=== PATIENT | female | born 1955 | race Caucasian/White ===

== ENCOUNTER 2017-11-22 21:30 | Observation (INO) | payer OTHER ==
[2017-11-22] MEDS ORDERED: RX INFO: IV CONTRAST WAS GIVEN 1 EACH MISC MISCELLANE PRN (21:42)
[2017-11-22] MEDS ORDERED: SODIUM CHLORIDE 0.9% 1,000 ML IV STA ×2 (21:42)
--- NOTE | 2017-11-22 21:45 | ED ---
General Adult HPI - General Chief complaint: Abdominal Pain Stated complaint: Upper Gastric Pain Time Seen by Provider: 11/22/17 21:32 Source: patient, EMS, RN notes reviewed, old records reviewed Mode of arrival: EMS Limitations: no limitations - History of Present Illness Initial comments: This is a 62-year-old female to the ER for evaluation. Patient was essay for evaluation regards to chest pain. Chest pain that began this morning while wearing came back again tonight. Chest pain is in her chest radiating to her back, continuous and severe. Patient has no prior history of this pain or issues before, no significant medical history. Takes no medications. - Related Data Home Medications Medication Instructions Recorded Confirmed Ascorbic Acid [Vitamin C] 500 mg PO DAILY 11/22/17 11/22/17 Aspirin EC [Ecotrin Low Dose] 81 mg PO DAILY 11/22/17 11/22/17 Cholecalciferol [Vitamin D3] 1,000 unit PO DAILY 11/22/17 11/22/17 Multivitamin [Multivitamins Adult 2 tab PO DAILY 11/22/17 11/22/17 Gummies] Allergies Allergy/AdvReac Type Severity Reaction Status Date / Time No Known Allergies Allergy Verified 11/22/17 21:54 Review of Systems ROS Statement: Those systems with pertinent positive or pertinent negative responses have been documented in the HPI. ROS Other: All systems not noted in ROS Statement are negative. Past Medical History Past Medical History: No Reported History History of Any Multi-Drug Resistant Organisms: None Reported Past Surgical History: Section, Tubal Ligation Past Psychological History: Depression General Exam Limitations: no limitations General appearance: alert, in no apparent distress, anxious Head exam: Present: atraumatic, normocephalic, normal inspection Eye exam: Present: normal appearance, PERRL, EOMI. Absent: scleral icterus, conjunctival injection, periorbital swelling ENT exam: Present: normal exam, mucous membranes moist Neck exam: Present: normal inspection. Absent: tenderness, meningismus, lymphadenopathy Respiratory exam: Present: normal lung sounds bilaterally. Absent: respiratory distress, wheezes, rales, rhonchi, stridor Cardiovascular Exam: Present: regular rate, normal rhythm, normal heart sounds. Absent: systolic murmur, diastolic murmur, rubs, gallop, clicks GI/Abdominal exam: Present: soft, normal bowel sounds. Absent: distended, tenderness, guarding, rebound, rigid Extremities exam: Present: normal inspection, full ROM, normal capillary refill. Absent: tenderness, pedal edema, joint swelling, calf tenderness Back exam: Present: normal inspection Neurological exam: Present: alert, oriented X3, CN II-XII intact Psychiatric exam: Present: normal affect, normal mood Skin exam: Present: warm, dry, intact, normal color. Absent: rash Course Vital Signs 11/22/17 11/22/17 21:36 23:42 Temperature 98.2 F Pulse Rate 74 70 Respiratory 18 16 Rate Blood Pressure 198/93 O2 Sat by Pulse 95 99 Oximetry Medical Decision Making - Medical Decision Making 62 female the ER for evaluation of bowel pain down pain rating to her back. Happened earlier today after breakfast, again tonight and more persistent. Patient is a positive cholecystitis. To be admitted for surgical treatment - Lab Data Result diagrams: 11/22/17 21:32 11/22/17 21:32 Lab Results 11/22/17 11/22/17 11/22/17 Range/Units 21:32 21:32 21:32 WBC 6.6 (3.8-10.6) k/uL RBC 4.63 (3.80-5.40) m/uL Hgb 13.5 (11.4-16.0) gm/dL Hct 42.0 (34.0-46.0) % MCV 90.7 (80.0-100.0) fL MCH 29.1 (25.0-35.0) pg MCHC 32.1 (31.0-37.0) g/dL RDW 14.3 (11.5-15.5) % Plt Count 302 (150-450) k/uL Neutrophils % 62 % Lymphocytes % 22 % Monocytes % 5 % Eosinophils % 9 % Basophils % 1 % Neutrophils # 4.1 (1.3-7.7) k/uL Lymphocytes # 1.4 (1.0-4.8) k/uL Monocytes # 0.3 (0-1.0) k/uL Eosinophils # 0.6 (0-0.7) k/uL Basophils # 0.1 (0-0.2) k/uL PT (9.0-12.0) sec INR (<1.2) APTT (22.0-30.0) sec D-Dimer (<0.60) mg/L FEU Sodium 142 (137-145) mmol/L Potassium 4.2 (3.5-5.1) mmol/L Chloride 103 (98-107) mmol/L Carbon Dioxide 27 (22-30) mmol/L Anion Gap 12 mmol/L BUN 9 (7-17) mg/dL Creatinine 0.50 L (0.52-1.04) mg/dL Est GFR (CKD-EPI)AfAm >90 (>60 ml/min/1.73 sqM) Est GFR (CKD-EPI)NonAf >90 (>60 ml/min/1.73 sqM) Glucose 144 H (74-99) mg/dL Calcium 9.8 (8.4-10.2) mg/dL Magnesium 1.8 (1.6-2.3) mg/dL Total Bilirubin 1.4 H (0.2-1.3) mg/dL AST 1062 H (14-36) U/L ALT 923 H (9-52) U/L Alkaline Phosphatase 199 H (38-126) U/L Total Creatine Kinase 58 (30-135) U/L CK-MB (CK-2) 0.8 (0.0-2.4) ng/mL CK-MB (CK-2) Rel Index 1.4 Troponin I <0.012 (0.000-0.034) ng/mL Total Protein 7.1 (6.3-8.2) g/dL Albumin 4.2 (3.5-5.0) g/dL Lipase 197 (23-300) U/L 11/22/17 Range/Units 21:32 WBC (3.8-10.6) k/uL RBC (3.80-5.40) m/uL Hgb (11.4-16.0) gm/dL Hct (34.0-46.0) % MCV (80.0-100.0) fL MCH (25.0-35.0) pg MCHC (31.0-37.0) g/dL RDW (11.5-15.5) % Plt Count (150-450) k/uL Neutrophils % % Lymphocytes % % Monocytes % % Eosinophils % % Basophils % % Neutrophils # (1.3-7.7) k/uL Lymphocytes # (1.0-4.8) k/uL Monocytes # (0-1.0) k/uL Eosinophils # (0-0.7) k/uL Basophils # (0-0.2) k/uL PT 9.6 (9.0-12.0) sec INR 1.0 (<1.2) APTT 22.4 (22.0-30.0) sec D-Dimer 1.70 H (<0.60) mg/L FEU Sodium (137-145) mmol/L Potassium (3.5-5.1) mmol/L Chloride (98-107) mmol/L Carbon Dioxide (22-30) mmol/L Anion Gap mmol/L BUN (7-17) mg/dL Creatinine (0.52-1.04) mg/dL Est GFR (CKD-EPI)AfAm (>60 ml/min/1.73 sqM) Est GFR (CKD-EPI)NonAf (>60 ml/min/1.73 sqM) Glucose (74-99) mg/dL Calcium (8.4-10.2) mg/dL Magnesium (1.6-2.3) mg/dL Total Bilirubin (0.2-1.3) mg/dL AST (14-36) U/L ALT (9-52) U/L Alkaline Phosphatase (38-126) U/L Total Creatine Kinase (30-135) U/L CK-MB (CK-2) (0.0-2.4) ng/mL CK-MB (CK-2) Rel Index Troponin I (0.000-0.034) ng/mL Total Protein (6.3-8.2) g/dL Albumin (3.5-5.0) g/dL Lipase (23-300) U/L - Radiology Data Radiology results: report reviewed (CTA chest is negative, ultrasound is positive for acute cholecystitis), image reviewed Disposition Clinical Impression: Acute cholecystitis Disposition: ADMITTED IP TO THIS [facility] Condition: Fair Referrals: None,Stated [Primary Care Provider] - 1-2 days
[2017-11-22 22:01] LABS: Basophils # (A) 0.1 k/uL (0-0.2); Basophils % (A) 1 %; Eosinophils # (A) 0.6 k/uL (0-0.7); Eosinophils % (A) 9 %; HGB 13.5 gm/dL (11.4-16.0); Lymphocytes # (A) 1.4 k/uL (1.0-4.8); Lymphocytes % (A) 22 %; MCH 29.1 pg (25.0-35.0); MCHC 32.1 g/dL (31.0-37.0); MCV 90.7 fL (80.0-100.0); Mean Platelet Volume 6.8; Monocytes # (A) 0.3 k/uL (0-1.0); Monocytes % (A) 5 %; Neutrophils # (A) 4.1 k/uL (1.3-7.7); Neutrophils % (A) 62 %; Platelet Count 302 k/uL (150-450); RBC 4.63 m/uL (3.80-5.40); RDW 14.3 % (11.5-15.5); WBC 6.6 k/uL (3.8-10.6)
[2017-11-22 22:11] LABS: D-Dimer 1.7 mg/L FEU (<0.60)
[2017-11-22 22:12] LABS: ALT 923 U/L (9-52); Albumin 4.2 g/dL (3.5-5.0); Alkaline Phosphatase 199 U/L (38-126); Anion Gap 12 mmol/L; Blood Urea Nitrogen 9 mg/dL (7-17); Calcium 9.8 mg/dL (8.4-10.2); Carbon Dioxide 27 mmol/L (22-30); Chloride 103 mmol/L (98-107); Glucose 144 mg/dL (74-99); Lipase 197 U/L (23-300); Magnesium 1.8 mg/dL (1.6-2.3); Potassium 4.2 mmol/L (3.5-5.1); Sodium 142 mmol/L (137-145); Total Bilirubin 1.4 mg/dL (0.2-1.3); Total Protein 7.1 g/dL (6.3-8.2)
[2017-11-22 22:17] LABS: Partial Thromboplastin Time 22.4 sec (22.0-30.0); Prothrombin Time 9.6 sec (9.0-12.0)
--- NOTE | 2017-11-22 22:18 | CT ---
EXAMINATION TYPE: CT angio thoracic/abd aorta DATE OF EXAM: 11/22/2017 COMPARISON: NONE HISTORY: Epigastric pain that wraps around to back. Hypertension. CT DLP: 476.8 mGycm. Automated Exposure Control for Dose Reduction was Utilized. CONTRAST: CT scan of the thorax, abdomen and pelvis is performed with IV Contrast, patient injected with 100 mL of Omnipaque 350. FINDINGS: There are 3-D post processed images. Thoracic aorta has normal size. There is no evidence of aneurysm or dissection. I see no filling defects in the pulmonary arteries. There is no mediastinal adenopath y. There are no hilar masses. Abdominal aorta has normal size. There is no evidence of abdominal aort ic aneurysm or dissection. There is mild atheromatous change. There is no evidence of stenosis. There is patency of the celiac artery and the superior mesenteric artery. There is patency of the eusebio al arteries. There is wide patency of the iliac arteries. There are clips from tubal ligation. Bladde r distends smoothly. There is no evidence of a pelvic mass. Appendix appears normal. There is no retr operitoneal adenopathy. There are numerous calcified gallstones. There is no hydronephrosis. CONCLUSION: Minimal atheromatous change. No evidence of aortic aneurysm or dissection. No evidence of hemodynamic ally significant stenosis. There is a degenerative mild first-degree L4-5 spondylolisthesis. Calcified gallstones. Minimal pleural scarring at the right upper lobe posteriorly.
[2017-11-22 22:23] LABS: Creatine Kinase 58 U/L (30-135)
[2017-11-22 22:27] LABS: AST 1062 U/L (14-36)
[2017-11-22 22:36] LABS: Creatine Kinase MB 0.8 ng/mL (0.0-2.4); Troponin I <0.012 ng/mL (0.000-0.034)
--- NOTE | 2017-11-22 23:46 | US ---
EXAMINATION TYPE: US gallbladder DATE OF EXAM: 11/22/2017 COMPARISON: CT 2018 CLINICAL HISTORY: Pain. Abdomen pain, heartburn EXAM MEASUREMENTS: Liver Length: 15.0 cm Gallbladder Wall: 0.2 cm CBD: 0.4 cm Right Kidney: 9.5 x 4.3 x 4.7 cm Pancreas: duct seen measuring 0.3cm, tail obscured by overlying midline bowel gas Liver: wnl Gallbladder: multiple mobile echogenic shadowing foci, wall measures wnl Evidence for sonographic Vázquez's sign: yes CBD: visualized portions wnl Right Kidney: wnl IMPRESSION: Numerous gallstones. No dilated ducts.
[2017-11-22] MEDS ORDERED: AMPICILLIN-SULBACTAM 3 GM in SODIUM CHLORIDE 0.9% 100 ML IVPB STA (23:48)
[2017-11-23] MEDS ORDERED: AMPICILLIN-SULBACTAM 3 GM in SODIUM CHLORIDE 0.9% 100 ML IVPB SCH ×2
[2017-11-23] MEDS: AMPICILLIN-SULBACTAM 3 GM in SODIUM CHLORIDE 0.9% 100 ML IVPB SCH ×3 (05:14→17:04)
[2017-11-23] MEDS: ENOXAPARIN 40 MG/0.4 ML SYRINGE SQ SCH (09:15)
--- NOTE | 2017-11-23 13:13 | P.GSHP ---
History of Present Illness H&P Date: 11/23/17 Chief Complaint: Lower chest pain The patient's a 62-year-old female that developed some chest pain and pressure in her lower chest/epigastric area yesterday. This started after eating some cheese and crackers for breakfast. This went away and then later in the day returned after some chips and salsa. She went to bed and then a googled her symptoms and talked to her nurse who recommended evaluation to rule out atypical heart disease. She was found to have elevated liver function tests and gallstones. She's never previously had any problems with pain similar to this. No discomfort, nausea, vomiting with greasy or fatty foods. No jaundice , tea-colored urine, acholic stools. No fevers or chills. No diarrhea or constipation. Many of her family members have had cholecystectomy. She feels great this morning and wants to go home. - Review of Systems All systems: negative - Constitutional Constitutional: Reports as per HPI Past Medical History Past Medical History: No Reported History History of Any Multi-Drug Resistant Organisms: None Reported Past Surgical History: Section, Tubal Ligation Past Anesthesia/Blood Transfusion Reactions: No Reported Reaction Past Psychological History: Depression Smoking Status: Light tobacco smoker Past Alcohol Use History: None Reported Past Drug Use History: None Reported Medications and Allergies Home Medications Medication Instructions Recorded Confirmed Type Ascorbic Acid [Vitamin C] 500 mg PO DAILY 11/22/17 11/22/17 History Aspirin EC [Ecotrin Low Dose] 81 mg PO DAILY 11/22/17 11/22/17 History Cholecalciferol [Vitamin D3] 1,000 unit PO DAILY 11/22/17 11/22/17 History Multivitamin [Multivitamins Adult 2 tab PO DAILY 11/22/17 11/22/17 History Gummies] Allergies Allergy/AdvReac Type Severity Reaction Status Date / Time No Known Allergies Allergy Verified 11/22/17 21:54 Surgical - Exam Osteopathic Statement: *. No significant issues noted on an osteopathic structural exam other than those noted in the History and Physical/Consult. Vital Signs Temp Pulse Resp BP Pulse Ox 98.2 F 74 18 198/93 95 11/22/17 21:36 11/22/17 21:36 11/22/17 21:36 11/22/17 21:36 11/22/17 21:36 - General well developed, well nourished, no distress - Eyes normal ocular movement - ENT normal nares, normal mucosa, no hearing loss - Neck trachea midline - Respiratory normal expansion, normal respiratory effort, clear to auscultation - Cardiovascular Rhythm: regular Abnormal Heart Sounds: no systolic murmur - Abdomen Abdomen: soft, no non tender, bowel sounds, surgical scars (Lower midline) Hernia: no umbilical - Psychiatric oriented to time, oriented to person, oriented to place, speech is normal, memory intact Results - Labs 11/22/17 21:32 11/22/17 21:32 Abnormal Lab Results - Last 24 Hours (Table) 11/22/17 11/22/17 Range/Units 21:32 21:32 D-Dimer 1.70 H (<0.60) mg/L FEU Creatinine 0.50 L (0.52-1.04) mg/dL Glucose 144 H (74-99) mg/dL Total Bilirubin 1.4 H (0.2-1.3) mg/dL AST 1062 H (14-36) U/L ALT 923 H (9-52) U/L Alkaline Phosphatase 199 H (38-126) U/L Diabetes panel 11/22/17 Range/Units 21:32 Sodium 142 (137-145) mmol/L Potassium 4.2 (3.5-5.1) mmol/L Chloride 103 (98-107) mmol/L Carbon Dioxide 27 (22-30) mmol/L BUN 9 (7-17) mg/dL Creatinine 0.50 L (0.52-1.04) mg/dL Glucose 144 H (74-99) mg/dL Calcium 9.8 (8.4-10.2) mg/dL AST 1062 H (14-36) U/L ALT 923 H (9-52) U/L Alkaline Phosphatase 199 H (38-126) U/L Total Protein 7.1 (6.3-8.2) g/dL Albumin 4.2 (3.5-5.0) g/dL Calcium panel 11/22/17 Range/Units 21:32 Calcium 9.8 (8.4-10.2) mg/dL Albumin 4.2 (3.5-5.0) g/dL Pituitary panel 11/22/17 Range/Units 21:32 Sodium 142 (137-145) mmol/L Potassium 4.2 (3.5-5.1) mmol/L Chloride 103 (98-107) mmol/L Carbon Dioxide 27 (22-30) mmol/L BUN 9 (7-17) mg/dL Creatinine 0.50 L (0.52-1.04) mg/dL Glucose 144 H (74-99) mg/dL Calcium 9.8 (8.4-10.2) mg/dL Adrenal panel 11/22/17 Range/Units 21:32 Sodium 142 (137-145) mmol/L Potassium 4.2 (3.5-5.1) mmol/L Chloride 103 (98-107) mmol/L Carbon Dioxide 27 (22-30) mmol/L BUN 9 (7-17) mg/dL Creatinine 0.50 L (0.52-1.04) mg/dL Glucose 144 H (74-99) mg/dL Calcium 9.8 (8.4-10.2) mg/dL Total Bilirubin 1.4 H (0.2-1.3) mg/dL AST 1062 H (14-36) U/L ALT 923 H (9-52) U/L Alkaline Phosphatase 199 H (38-126) U/L Total Protein 7.1 (6.3-8.2) g/dL Albumin 4.2 (3.5-5.0) g/dL - Imaging US - abdomen: report reviewed Assessment and Plan (1) Cholelithiasis Current Visit: Yes Status: Acute Code(s): K80.20 - CALCULUS OF GALLBLADDER W /O CHOLECYSTITIS W/O OBSTRUCTION SNOMED Code(s): 835376796 (2) Elevated liver function tests Current Visit: Yes Status: Acute Code(s): R79.89 - OTHER SPECIFIED ABNORMAL FINDINGS OF BLOOD CHEMISTRY SNOMED Code(s): 436737371 Plan: The patient is anxious to go home. I recommended we obtain a acute hepatitis panel, since the common bile duct was nondilated. We'll give her a trial of a diet. Repeat liver function tests in the morning. If she symptomatic again with eating do a laparoscopic cholecystectomy while she is here. Further recommendations to follow. DVT and ulcer prophylaxis.
[2017-11-24] MEDS: AMPICILLIN-SULBACTAM 3 GM in SODIUM CHLORIDE 0.9% 100 ML IVPB SCH ×3 (00:27→11:15)
[2017-11-24] MEDS: ENOXAPARIN 40 MG/0.4 ML SYRINGE SQ SCH (07:07)
[2017-11-24 07:55] VITALS: BP 145/76; PULSE 68; RESP 18; TEMP 97
[2017-11-24 08:04] LABS: ALT 520 U/L (9-52); AST 186 U/L (14-36); Albumin 4.1 g/dL (3.5-5.0); Alkaline Phosphatase 179 U/L (38-126); Anion Gap 11 mmol/L; Blood Urea Nitrogen 8 mg/dL (7-17); Calcium 9.6 mg/dL (8.4-10.2); Carbon Dioxide 27 mmol/L (22-30); Chloride 104 mmol/L (98-107); Glucose 114 mg/dL (74-99); Potassium 4.1 mmol/L (3.5-5.1); Sodium 142 mmol/L (137-145); Total Bilirubin 0.7 mg/dL (0.2-1.3); Total Protein 6.9 g/dL (6.3-8.2)
[2017-11-24 10:49] LABS: Hepatitis A Antibody IgM Non-Reactive (Non-Reactive); Hepatitis B Core IgM Non-Reactive (Non-Reactive)
--- NOTE | 2017-11-24 12:15 | P.PN ---
Subjective Progress Note Date: 11/24/17 Principal diagnosis: Cholelithiasis, elevated liver function tests The patient has had no further chest pain or pressure since admission. She tolerated a diet yesterday with no complaints. She is anxious to go home. Objective - Vital Signs Vital signs: Vital Signs Temp 97.0 F L 11/24/17 07:00 Pulse 68 11/24/17 07:00 Resp 18 11/24/17 07:00 BP 145/76 11/24/17 07:00 Pulse Ox 95 11/24/17 07:00 Intake & Output 11/23/17 11/24/17 11/24/17 18:59 06:59 18:59 Intake Total 1775 997 3138 Balance 9337 243 9788 Weight 75.296 kg 75.296 kg Intake: IV 400 Sodium Chloride 0.9% 1, 400 000 ml @ 100 mls/hr IV . Q10H STA Rx#:[id number] Intake, IV Titration 1000 200 100 Amount Ampicillin-Sulbactam 3 gm 200 200 100 In Sodium Chloride 0.9% 100 ml @ 100 mls/hr IVPB Q6HR VIKTOR Rx#:[id number] Sodium Chloride 0.9% 1, 800 000 ml @ 100 mls/hr IV . Q10H STA Rx#:[id number] Oral 360 1000 Other: Voiding Method Toilet Toilet Toilet # Voids 3 3 # Bowel Movements 1 - Constitutional General appearance: Present: cooperative, no acute distress - EENT Eyes: Present: anicteric sclerae - Respiratory Respiratory: bilateral: CTA - Gastrointestinal General gastrointestinal: Present: soft. Absent: distended, tenderness - Labs CBC & Chem 7: 11/22/17 21:32 11/24/17 07:19 Labs: Abnormal Lab Results - Last 24 Hours (Table) 11/24/17 Range/Units 07:19 Glucose 114 H (74-99) mg/dL AST 186 H (14-36) U/L ALT 520 H (9-52) U/L Alkaline Phosphatase 179 H (38-126) U/L Assessment and Plan (1) Cholelithiasis Current Visit: Yes Status: Acute Code(s): K80.20 - CALCULUS OF GALLBLADDER W /O CHOLECYSTITIS W/O OBSTRUCTION SNOMED Code(s): 135720745 (2) Elevated liver function tests Current Visit: Yes Status: Acute Code(s): R79.89 - OTHER SPECIFIED ABNORMAL FINDINGS OF BLOOD CHEMISTRY SNOMED Code(s): 956393543 Plan: The patient has felt well since admission. Her liver function tests are coming down. Likely she passed a small gallstone in the gallstone without difficulty. We'll discharge her home on a low-fat diet and schedule her as an outpatient for a laparoscopic cholecystectomy. The procedure risk and complications were discussed. Questions were encouraged and answered. We went over symptoms to look for as far as her recurrent symptomatic gallstone.
--- NOTE | 2017-11-24 12:17 | P.DS ---
Providers Date of admission: 11/23/17 00:02 Expected date of discharge: 11/24/17 Attending physician: Yani Torres Primary care physician: Stated None - Discharge Diagnosis(es) (1) Cholelithiasis Current Visit: Yes Status: Acute (2) Elevated liver function tests Current Visit: Yes Status: Acute Hospital Course: The patient presented with chest and epigastric discomfort and nausea. She was found to have gallstones with a normal common bile duct on ultrasound. Her liver function tests were elevated. She was asymptomatic after admission. Follow-up liver function tests dropped quickly. She was felt to be stable for discharge with outpatient cholecystectomy to be scheduled. Patient Condition at Discharge: Good Plan - Discharge Summary Discharge Rx Participant: No New Discharge Prescriptions: No Action Aspirin EC [Ecotrin Low Dose] 81 mg PO DAILY Ascorbic Acid [Vitamin C] 500 mg PO DAILY Multivitamin [Multivitamins Adult Gummies] 2 tab PO DAILY Cholecalciferol [Vitamin D3] 1,000 unit PO DAILY Discharge Medication List Ascorbic Acid [Vitamin C] 500 mg PO DAILY 11/22/17 [History] Aspirin EC [Ecotrin Low Dose] 81 mg PO DAILY 11/22/17 [History] Cholecalciferol [Vitamin D3] 1,000 unit PO DAILY 11/22/17 [History] Multivitamin [Multivitamins Adult Gummies] 2 tab PO DAILY 11/22/17 [History] Follow up Appointment(s)/Referral(s): Yani Torres DO [Doctor of Osteopathic Medicine] - 1 Week None,Stated [Primary Care Provider] - 1-2 days Activity/Diet/Wound Care/Special Instructions: Low-fat, bland diet. If you develop jaundice, fever, chills, nausea, vomiting, recurrent chest pressure or pain, call the office or return to the emergency department. We will call to schedule a laparoscopic cholecystectomy for use as outpatient. Discharge Disposition: HOME SELF-CARE
== END 2017-11-24 13:25 | disposition home or self-care (01) ==
LOC: EC 21:30 → 5MS5E 11-23 00:02 → INTOOBSV 11-23 00:02
PROVIDERS: ADMIT Surgery; ATTEND Surgery
DX: K80.00 Calculus of gallbladder with acute cholecystitis without obstruction (principal); F32.9 Major depressive disorder, single episode, unspecified; R79.89 Other specified abnormal findings of blood chemistry; F17.200 Nicotine dependence, unspecified, uncomplicated; Z79.82 Long term (current) use of aspirin; Z83.79 Family history of other diseases of the digestive system
CPT/HCPCS: 99285; 96361 ×3; 96365; 36415; 85379; 80053 ×2; 80074; 82550; 82553; 83690; 83735; 84484; 85025; 85610; 85730; 76705; 75635; 71275; G0378 ×2; Q9967; J0295 ×2; 96366

== ENCOUNTER 2017-12-20 07:48 | Day surgery (SDC) | payer OTHER ==
[2017-12-16 15:44] VITALS: BMI 29.2
[~2017-12-20 07:48] MED LIST: DEXAMETHASONE SOD PHOSPHATE 10 MG/ML 1 ML VIAL IV ONE; LACTATED RINGERS 1,000 ML IV SCH; MIDAZOLAM 2 MG/2 ML VIAL IV PRN; MORPHINE SULFATE 4 MG/ML SYRINGE IV PRN; ONDANSETRON 4 MG/2 ML VIAL IVP ONE; ceFAZolin IN SWFI 2 GM/20 ML SYRINGE IVP ONE
[2017-12-20] MEDS ORDERED: LIDOCAINE 1% 20 ML VIAL (10MG/ML) FOR IV START INTRADERMA ONE (08:18)
[2017-12-20] MEDS ORDERED: PROPOFOL 10 MG/ML 20 ML VIAL IV ONE (08:54)
[2017-12-20] MEDS ORDERED: GLYCOPYRROLATE 0.2 MG/ML 2 ML VIAL ONE (08:54)
[2017-12-20] MEDS ORDERED: NEOSTIGMINE 1 MG/ML 10 ML VIAL ONE (08:54)
[2017-12-20] MEDS ORDERED: fentaNYL (PF) 50 MCG/ML 2 ML AMP ONE (08:54)
[2017-12-20] MEDS ORDERED: ROCURONIUM BROMIDE 10 MG/ML 10 ML VIAL IV ONE (08:54)
[2017-12-20] MEDS ORDERED: SUCCINYLCHOLINE CHLORIDE 100 MG/5 ML SYR IV ONE (08:54)
[2017-12-20] MEDS ORDERED: LIDOCAINE 1% INJ 10MG/ML (20 ML MDV) ONE (08:54)
[2017-12-20] MEDS ORDERED: PHENYLEPHRINE-0.9% NACL SYG 1 MG/10 ML SYRINGE ONE (08:54)
[2017-12-20] MEDS ORDERED: ePHEDrine SULFATE/0.9% NACL/PF 50 MG/5 ML SYRINGE IV ONE (08:54)
[2017-12-20] MEDS ORDERED: BUPIVACAINE (PF) 0.5% 30 ML VIAL SQ ONE (09:17)
[2017-12-20] MEDS ORDERED: LIDOCAINE 1%/EPI 1:200,000 MPF 10 ML VIAL SQ ONE (09:50)
--- NOTE | 2017-12-20 10:04 | P.OP ---
Date of Procedure: 12/20/17 Preoperative Diagnosis: Cholelithiasis, biliary colic Postoperative Diagnosis: Same Procedure(s) Performed: Laparoscopic cholecystectomy Anesthesia: ES Surgeon: Yani Torres Pathology: other (Gallbladder) Condition: stable Disposition: PACU Indications for Procedure: Patient presented with symptomatic cholelithiasis Operative Findings: The patient's taken the operative suite where she is prepped and draped in the usual sterile manner under a general endotracheal anesthetic. A supraumbilical incision was made. The fascia was grasped and incised. The peritoneum was grasped and incised. A finger sweep was carried out. A balloon trocar was inserted and pneumoperitoneum was established with CO2 gas. Sites are chosen for accessory trochars needs are placed through small skin incisions. The abdominal and pelvic contents were examined and were unremarkable. The fundus of the gallbladder is grasped and retracted superiorly. A few filmy adhesions of the omentum were bluntly taken down. Aida's pouch was then identified it was grasped and retracted laterally. The cystic artery and cystic duct were dissected free. They're triply clipped and cut. The gallbladder is then dissected free from the liver bed. Small bleeding points were controlled with electrocautery. The gallbladder is removed through the umbilical port site. The liver bed is reexamined and noted to be hemostatic. The excess irrigant is suctioned out. The pneumoperitoneum is released. The trochars are removed. The fascia at the umbilicus was closed with 0 Vicryl. The skin incisions were closed with 4-0 Vicryl in a subcuticular manner. Steri-Strips and dressings were applied. She tolerated the procedure without difficulty and was taken recovery room in satisfactory condition. According to or personnel, WERE correct. Plan - Discharge Summary New Discharge Prescriptions: New HYDROcodone/APAP 5-325MG [[place] 5-325] 1 - 2 tab PO Q4H PRN #14 tab PRN Reason: Pain No Action Aspirin EC [Ecotrin Low Dose] 81 mg PO DAILY Ascorbic Acid [Vitamin C] 500 mg PO DAILY Multivitamin [Multivitamins Adult Gummies] 2 tab PO DAILY Cholecalciferol [Vitamin D3] 1,000 unit PO DAILY Discharge Medication List Ascorbic Acid [Vitamin C] 500 mg PO DAILY 11/22/17 [History] Aspirin EC [Ecotrin Low Dose] 81 mg PO DAILY 11/22/17 [History] Cholecalciferol [Vitamin D3] 1,000 unit PO DAILY 11/22/17 [History] Multivitamin [Multivitamins Adult Gummies] 2 tab PO DAILY 11/22/17 [History] HYDROcodone/APAP 5-325MG [[place] 5-325] 1 - 2 tab PO Q4H PRN #14 tab 12/20/17 [Rx ] Follow up Appointment(s)/Referral(s): aYni Torres DO [Doctor of Osteopathic Medicine] - 2 Weeks Activity/Diet/Wound Care/Special Instructions: You may remove the Band-Aids on Saturday and take a shower. No Tub baths for 1 week. Remove the small tapes from the skin in 1 week. Follow a low-fat diet. You can take Motrin or Tylenol instead of the pain pills. Expect some bruising under the incisions. Call if you develop nausea, vomiting, fever, chills, concerns about incisions. Discharge Disposition: HOME SELF-CARE
[2017-12-20 10:18] VITALS: RESP 16; TEMP 97.2
[2017-12-20] MEDS ORDERED: LACTATED RINGERS 1,000 ML IV ONE (10:49)
[2017-12-20 12:04] VITALS: BP 146/74; PULSE 88
== END 2017-12-20 12:17 | disposition home or self-care (01) ==
LOC: OR 07:48
PROVIDERS: ATTEND Surgery
DX: K80.10 Calculus of gallbladder with chronic cholecystitis without obstruction (principal); F17.210 Nicotine dependence, cigarettes, uncomplicated; Z79.82 Long term (current) use of aspirin; Z98.51 Tubal ligation status
CPT/HCPCS: 47562; J1100; J2710; J2405; J2001; J3010; J2370; J0330; J2704; J0690; 88304

== ENCOUNTER → 2018-08-19 | Outpatient (CLI) | payer OTHER ==
--- NOTE | 2018-08-19 14:20 | XR ---
EXAMINATION TYPE: XR chest 2V DATE OF EXAM: 08/19/2018 COMPARISON: NONE TECHNIQUE: PA and lateral views submitted. HISTORY: Chest pain FINDINGS: The lungs are clear and there is no pneumothorax, pleural effusion, or focal pneumonia. Arthropathy of the AC joints. Hypertrophic and degenerative change of the vertebral column. IMPRESSION: 1. No acute process.
== END | disposition home or self-care (01) ==
LOC: RADXRMAIN 14:08
PROVIDERS: ATTEND Family Medicine
DX: R07.89 Other chest pain (principal)
CPT/HCPCS: 71046

== ENCOUNTER → 2018-08-29 | Outpatient (CLI) | payer OTHER ==
--- NOTE | 2018-08-29 11:29 | P.STRESS ---
- Stress Test Note Stress Test Results/Findings: Exam Performed: stress test Exam Date: 08/29/18 Reason for Exam: CHEST PRESSURE Height: 5 ft 2 in Weight: 81.647 kg Protocol: STRESS Stage: II Duration of Exercise: 4:30 Resting Heart Rate: 72 Resting Blood Pressure: 132/82 Maximum Achieved Heart Rate: 148 Maximum Achieved Blood Pressure: 254/64 85% PMHR: 133 100% PMHR: 157 METS: 6.2 Technologist Comment: Stress Test Results/Findings: This is a 62-year-old female with history of hypertension, family history of ischemic heart disease and also some tobacco use being evaluated symptoms of chest pain and no Stress data: Baseline EKG showed sinus rhythm with normal MT interval and QRS duration. Blood pressure at rest is 130/80 with pulse rate of 77. Patient walked on the Pee protocol for 4 minutes and 30 seconds achieving a maximal heart rate of 148 with a peak blood pressure of 254/64. The test was stopped because patient is achieved 94%. Heart rate and also symptoms of shortness of breath. EKGs during and after exercise showed mild ST-T changes in the inferolateral leads which are not diagnostic for ischemia. Patient did not express any chest pain. Final impression: #1. Limited excess capacity #2. Probably negative stress test with mild ST-T changes at peak exercise, which are nondiagnostic and probably related to hypertensive response. #3. Patient did not expect any chest pain #4, patient complained of shortness of breath necessitating termination of the test.
== END | disposition home or self-care (01) ==
LOC: RADNMMAIN 08:46
PROVIDERS: ATTEND Family Medicine
DX: R07.89 Other chest pain (principal)
CPT/HCPCS: 93017

== ENCOUNTER → 2018-09-11 | Outpatient (CLI) | payer OTHER ==
--- NOTE | 2018-09-13 06:05 | ECHOF ---
Referral Reason:R07.89 Other chest pain MEASUREMENTS -------- HEIGHT: 157.5 cm WEIGHT: 81.6 kg BP: 149/0 RVIDd: 2.9 cm (< 3.3) IVSd: 1.2 cm (0.6 - 1.1) LVIDd: 3.4 cm (3.9 - 5.3) LVPWd: 1.2 cm (0.6 - 1.1) IVSs: 1.4 cm LVIDs: 2.3 cm LVPWs: 1.6 cm LA Diam: 3.2 cm (2.7 - 3.8) LAESV Index (A-L): 18.82 ml/m Ao Diam: 2.6 cm (2.0 - 3.7) AV Cusp: 1.8 cm (1.5 - 2.6) MV EXCURSION: 14.946 mm (> 18.000) MV EF SLOPE: 83 mm/s (70 - 150) EPSS: 0.8 cm MV E Ruddy: 0.96 m/s MV DecT: 266 ms MV A Ruddy: 0.86 m/s MV E/A Ratio: 1.11 FINDINGS -------- Sinus rhythm. This was a technically good study. The left ventricular size is normal. There is borderline concentric left ventricular hypertrophy. Overall left ventricular systolic function is normal with, an EF between 60 - 65 %. The right ventricle is normal in size. Normal LA size by volume 22+/-6 ml/m2. The right atrium is normal in size. There is mild aortic valve sclerosis. The mitral valve is normal. The tricuspid valve appears structurally normal. There is no pulmonic regurgitation present. The aortic root size is normal. Normal inferior vena cava with normal inspiratory collapse consistent with estimated right atrial pre ssure of 5 mmHg. The inferior vena cava is mildly dilated. The pericardium is normal. CONCLUSIONS -------- 1. Sinus rhythm. 2. This was a technically good study. 3. The left ventricular size is normal. 4. There is borderline concentric left ventricular hypertrophy. 5. Overall left ventricular systolic function is normal with, an EF between 60 - 65 %. 6. The right ventricle is normal in size. 7. Normal LA size by volume 22+/-6 ml/m2. 8. The right atrium is normal in size. 9. There is mild aortic valve sclerosis. 10. The mitral valve is normal. 11. The tricuspid valve appears structurally normal. 12. There is no pulmonic regurgitation present. 13. The aortic root size is normal. 14. Normal inferior vena cava with normal inspiratory collapse consistent with estimated right atrial pressure of 5 mmHg. 15. The inferior vena cava is mildly dilated. 16. The pericardium is normal. [employer] SCIENCE TEACHER: Miley Salomon RDCS
== END ==
LOC: RADECHMAIN 12:54
PROVIDERS: ATTEND Family Medicine
DX: I51.7 Cardiomegaly (principal); I35.8 Other nonrheumatic aortic valve disorders
CPT/HCPCS: 93306

== ENCOUNTER 2018-10-15 11:34 | Day surgery (SDC) | payer OTHER ==
[2018-10-13 12:10] VITALS: BMI 32.9
--- NOTE | 2018-10-15 09:54 | P.GSHP ---
History of Present Illness H&P Date: 10/15/18 CHIEF COMPLAINT: Colon screen HISTORY OF PRESENT ILLNESS: The patient is a 63-year-old female who presents for colon screen. Lower endoscopy was offered for further evaluation and management. PAST MEDICAL HISTORY: Please see list. PAST SURGICAL HISTORY: Please see list. MEDICATIONS: Please see list. ALLERGIES: Please see list. SOCIAL HISTORY: No illicit drug use FAMILY HISTORY: No reports of Crohn disease or ulcerative colitis. REVIEW OF ORGAN SYSTEMS: CONSTITUTIONAL: No reports of fevers or chills. PHYSICAL EXAM: VITAL SIGNS: Stable GENERAL: Well-developed pleasant in no acute distress. HEENT: No scleral icterus. Extraocular movements grossly intact. Moist buccal mucosa. NECK: Supple without lymphadenopathy. CHEST: Unlabored respirations. Equal bilateral excursions. CARDIOVASCULAR: Regular rate and rhythm. Distal 2+ pulses. ABDOMEN: Soft, nontender, nondistended. MUSCULOSKELETAL: No clubbing, cyanosis, or edema. ASSESSMENT: 1. Colon screen. PLAN: 1. Recommend proceeding with a lower endoscopy Past Medical History Past Medical History: Hyperlipidemia, Hypertension Additional Past Medical History / Comment(s): CHOLECYSTITIS, History of Any Multi-Drug Resistant Organisms: None Reported Past Surgical History: Section, Cholecystectomy, Tubal Ligation Additional Past Surgical History / Comment(s): COLONOSCOPY Past Anesthesia/Blood Transfusion Reactions: No Reported Reaction Smoking Status: Former smoker - Past Family History Mother Family Medical History: No Reported History Medications and Allergies Home Medications Medication Instructions Recorded Confirmed Type Aspirin EC [Ecotrin Low Dose] 81 mg PO DAILY 11/22/17 10/13/18 History Cholecalciferol [Vitamin D3] 1,000 unit PO DAILY 11/22/17 10/13/18 History Lisinopril [Zestril] 10 mg PO HS 10/13/18 10/13/18 History Simvastatin [Zocor] 10 mg PO HS 10/13/18 10/13/18 History Allergies Allergy/AdvReac Type Severity Reaction Status Date / Time No Known Allergies Allergy Verified 10/13/18 12:05
[~2018-10-15 11:34] MED LIST changes: -DEXAMETHASONE SOD PHOSPHATE 10 MG/ML 1 ML VIAL IV ONE; +LIDOCAINE 1% 20 ML VIAL (10MG/ML) FOR IV START INTRADERMA PRN; -MIDAZOLAM 2 MG/2 ML VIAL IV PRN; -MORPHINE SULFATE 4 MG/ML SYRINGE IV PRN; -ONDANSETRON 4 MG/2 ML VIAL IVP ONE; -ceFAZolin IN SWFI 2 GM/20 ML SYRINGE IVP ONE
[2018-10-15 12:15] VITALS: RESP 16; TEMP 97
[2018-10-15] MEDS ORDERED: LIDOCAINE 1% INJ 10MG/ML (20 ML MDV) ONE (12:55)
[2018-10-15] MEDS ORDERED: PROPOFOL 10 MG/ML 20 ML VIAL IV ONE (12:55)
--- NOTE | 2018-10-15 13:19 | P.PCN ---
Date of Procedure: 10/15/18 Description of Procedure: PREOPERATIVE DIAGNOSIS: Personal history of colon polyps Colonoscopy screening. POSTOPERATIVE DIAGNOSIS: Personal history of colon polyps Colonoscopy screening. Sigmoid colon polyp OPERATION: Colonoscopy with hot snare polypectomy Colonoscopy to the ileocecal valve and appendiceal orifice. SURGEON: Katrina Frias MD. ANESTHESIA: MAC. INDICATIONS: The patient is a 63-year-old female who presents for colonoscopy screening. Last colonoscopy 10 years ago. Benefits and risks were described and informed consent was obtained. DESCRIPTION OF PROCEDURE: The patient had undergone Gatorade, MiraLAX and Dulcolax prep. She had been brought into the operating room and laid in the left lateral decubitus position. After adequate intravenous sedation, the rectum was examined with 2% lidocaine jelly. External hemorrhoids were encountered. The rectal tone was within normal limits. No lesions were palpated in the rectal vault. An Olympus colonoscope was advanced until the ileocecal valve and appendiceal orifice were clearly viewed. The prep was fair with residual liquid stools. The scope was removed with visualization of each mucosal fold. No scattered diverticulosis was encountered. At 20 cm from anal verge, 4 mm villous adenoma was snare polypectomy. No evidence of focal colitis was found. Retroflexion of the scope demonstrated grade 1 internal hemorrhoids without active bleeding or inflammation. The colon was desufflated. The patient had tolerated the procedure well. Withdrawal time was over 6 minutes. FINDINGS: Internal hemorrhoids, grade 1 External prolapsed hemorrhoids, grade 2 No arteriovenous malformations. No sigmoid diverticulosis No focal colitis. At 20 cm from anal verge, 4 mm villous adenoma was snare polypectomy of sigmoid colon. RECOMMENDATIONS: Lower endoscopy in 3 years, 2021 Plan - Discharge Summary Discharge Rx Participant: Yes New Discharge Prescriptions: No Action Aspirin EC [Ecotrin Low Dose] 81 mg PO DAILY Cholecalciferol [Vitamin D3] 1,000 unit PO DAILY Simvastatin [Zocor] 10 mg PO HS Lisinopril [Zestril] 10 mg PO HS Discharge Medication List Aspirin EC [Ecotrin Low Dose] 81 mg PO DAILY 11/22/17 [History] Cholecalciferol [Vitamin D3] 1,000 unit PO DAILY 11/22/17 [History] Lisinopril [Zestril] 10 mg PO HS 10/13/18 [History] Simvastatin [Zocor] 10 mg PO HS 10/13/18 [History] Follow up Appointment(s)/Referral(s): Katrina Frias MD [STAFF PHYSICIAN] - As Needed Patient Instructions/Handouts: Colorectal Polyps (DC) Activity/Diet/Wound Care/Special Instructions: Repeat colonoscopy in 3 years, 2021 Discharge Disposition: HOME SELF-CARE
[2018-10-15 13:49] VITALS: BP 119/60; PULSE 77
== END 2018-10-15 14:23 | disposition home or self-care (01) ==
LOC: ORWHC2ENDO 11:34
PROVIDERS: ATTEND Surgery Plastic and Reconstructive Surgery
DX: Z12.11 Encounter for screening for malignant neoplasm of colon (principal); K63.5 Polyp of colon; K64.0 First degree hemorrhoids; K64.1 Second degree hemorrhoids; Z86.010 Personal history of colon polyps; E78.5 Hyperlipidemia, unspecified; I10 Essential (primary) hypertension; Z87.891 Personal history of nicotine dependence; Z79.82 Long term (current) use of aspirin; Z79.899 Other long term (current) drug therapy
CPT/HCPCS: 88305; 45385; J2001; J2704

== ENCOUNTER → 2018-10-24 | Outpatient (CLI) | payer OTHER ==
--- NOTE | 2018-11-12 10:15 | MM ---
Reason for exam: screening (asymptomatic). Last mammogram was performed 5 years and 4 months ago. History: Patient is postmenopausal. Physical Findings: A clinical breast exam by your physician is recommended on an annual basis and results should be correlated with mammographic findings. MG Screening Mammo w CAD Bilateral CC and MLO view(s) were taken. Prior study comparison: July 01, 2013, mammogram, performed at [facility]. June 16, 2012, mammogram, performed at [facility]. The breast tissue is heterogeneously dense. This may lower the sensitivity of mammography. There are benign appearing round calcifications in the left breast. There is no discrete abnormality. ASSESSMENT: Benign, BI-RAD 2 RECOMMENDATION: Routine screening mammogram of both breasts in 1 year.
== END | disposition home or self-care (01) ==
LOC: RADMAMWWP 09:11
PROVIDERS: ATTEND Family Medicine
DX: Z12.31 Encounter for screening mammogram for malignant neoplasm of breast (principal)
CPT/HCPCS: 77067

== ENCOUNTER → 2018-11-18 | Outpatient (CLI) | payer OTHER ==
--- NOTE | 2018-11-18 08:57 | US ---
EXAMINATION TYPE: US carotid duplex BILAT DATE OF EXAM: 11/18/2018 COMPARISON: NONE CLINICAL HISTORY: R09.89 Carotid Bruit. Bruit EXAM MEASUREMENTS: RIGHT: Peak Systolic Velocity (PSV) cm/sec ----- Right CCA: 77.6 ----- Right ICA: 123.7 ----- Right ECA: 143.4 ICA/CCA ratio: 1.6 RIGHT: End Diastole cm/sec ----- Right CCA: 23.7 ----- Right ICA: 31.7 ----- Right ECA: 25.0 LEFT: Peak Systolic Velocity (PSV) cm/sec ----- Left CCA: 70.6 ----- Left ICA: 112.8 ----- Left ECA: 86.9 ICA/CCA ratio: 1.6 LEFT: End Diastole cm/sec ----- Left CCA: 24.1 ----- Left ICA: 45.9 ----- Left ECA: 7.8 VERTEBRALS (direction of flow): Right Vertebral: Antegrade Left Vertebral: Antegrade Rhythm: Normal Bilateral intimal thickening, plaque bilateral bulb, elevated velocity: right proximal ECA, no signif icant stenosis. IMPRESSION: Moderate degree of grayscale atheromatous plaquing with no sonographically evident hemod ynamically significant stenosis within either visualized carotid arterial system. The bilateral inte rnal carotid artery velocities are upper limits of normal approaching criteria for 50-60% stenosis. Criteria for Assigning % of Stenosis / Diameter reduction (Estimation based on the indirect measurements of the internal carotid artery velocities (ICA PSV). 1. Normal (no stenosis)=ICA PSV < 125 cm/s: ratio < 2.0: ICA EDV<40 cm/s. 2. Less than 50% stenosis=ICA PSV < 125 cm/s: ratio < 2.0: ICA EDV<40 cm/s. 3. 50 to 69% stenosis=ICA PSV of 125 to 230 cm/s: ration 2.0 ? 4.0: ICA EDV 40-100 cm/s. 4. Greater than 70% stenosis to near occlusion= ICA PSV > 230 cm/s: ratio > 4.0: ICA EDV > 100 cm/s. 5. Near occlusion= ICA PSV velocities may be low or undetectable: variable ratio and ICA EDV. 6. Total occlusion=unable to detect flow.
== END ==
LOC: RADUSWWP 08:06
PROVIDERS: ATTEND Family Medicine
DX: I70.90 Unspecified atherosclerosis (principal)
CPT/HCPCS: 93880

== ENCOUNTER → 2020-02-18 | Outpatient (CLI) | payer MEDICARE ==
--- NOTE | 2020-02-22 10:40 | MM ---
Reason for exam: screening (asymptomatic). Last mammogram was performed 1 year and 4 months ago. History: Patient is postmenopausal. Physical Findings: A clinical breast exam by your physician is recommended on an annual basis and results should be correlated with mammographic findings. MG Screening Mammo w CAD Bilateral CC and MLO view(s) were taken. Prior study comparison: October 24, 2018, bilateral MG screening mammo w CAD. July 01, 2013, mammogram, performed at [facility]. There are scattered fibroglandular densities. There are benign appearing round calcifications in the left breast. There is no discrete abnormality. ASSESSMENT: Benign, BI-RAD 2 RECOMMENDATION: Routine screening mammogram of both breasts in 1 year.
== END | disposition home or self-care (01) ==
LOC: RADMAMWWP 08:12
PROVIDERS: ATTEND Family Medicine
DX: Z12.31 Encounter for screening mammogram for malignant neoplasm of breast (principal)
CPT/HCPCS: 77067

== ENCOUNTER 2021-11-08 06:39 | Day surgery (SDC) | payer MEDICARE, OTHER ==
[2021-11-06 11:51] VITALS: BMI 29.9
[2021-11-08] MEDS ORDERED: LIDOCAINE 1% (10MG/ML) FOR IV START INTRADERMA PRN (07:16)
[2021-11-08 07:25] VITALS: TEMP 97.4
[2021-11-08] MEDS: LACTATED RINGERS 1,000 ML IV SCH ×2 (07:28→07:37)
[2021-11-08] MEDS ORDERED: LIDOCAINE 1% INJ 10MG/ML (20 ML MDV) ONE (07:43)
[2021-11-08] MEDS ORDERED: PROPOFOL 10 MG/ML 20 ML VIAL IV ONE (07:43)
--- NOTE | 2021-11-08 07:48 | P.GSHP ---
History of Present Illness H&P Date: 11/08/21 CHIEF COMPLAINT: Colon screen HISTORY OF PRESENT ILLNESS: The patient is a 66-year-old female who presents for colon screen. Lower endoscopy was offered for further evaluation and management. PAST MEDICAL HISTORY: Please see list. PAST SURGICAL HISTORY: Please see list. MEDICATIONS: Please see list. ALLERGIES: Please see list. SOCIAL HISTORY: No illicit drug use FAMILY HISTORY: No reports of Crohn disease or ulcerative colitis. REVIEW OF ORGAN SYSTEMS: CONSTITUTIONAL: No reports of fevers or chills. PHYSICAL EXAM: VITAL SIGNS: Stable GENERAL: Well-developed pleasant in no acute distress. HEENT: No scleral icterus. Extraocular movements grossly intact. Moist buccal mucosa. NECK: Supple without lymphadenopathy. CHEST: Unlabored respirations. Equal bilateral excursions. CARDIOVASCULAR: Regular rate and rhythm. Distal 2+ pulses. ABDOMEN: Soft, nontender, nondistended. MUSCULOSKELETAL: No clubbing, cyanosis, or edema. ASSESSMENT: 1. Colon screen. PLAN: 1. Recommend proceeding with a lower endoscopy Past Medical History Past Medical History: Asthma, Chest Pain / Angina, GERD/Reflux, Hyperlipidemia, Hypertension Additional Past Medical History / Comment(s): hx migraines, History of Any Multi-Drug Resistant Organisms: None Reported Past Surgical History: Section, Cholecystectomy, Heart Catheterization With Stent, Tubal Ligation Additional Past Surgical History / Comment(s): COLONOSCOPY, one cardiac stent Past Anesthesia/Blood Transfusion Reactions: No Reported Reaction Date of Last Stent Placement:: 2018 Smoking Status: Former smoker - Past Family History Mother Family Medical History: No Reported History Medications and Allergies Home Medications Medication Instructions Recorded Confirmed Type Aspirin EC [Ecotrin Low Dose] 81 mg PO DAILY 11/22/17 11/08/21 History Cholecalciferol [Vitamin D3] 1,000 unit PO DAILY 11/22/17 11/08/21 History Albuterol Inhaler [Ventolin Hfa 1 puff INHALATION DIRECTED PRN 11/06/21 11/08/21 History Inhaler] Atorvastatin [Lipitor] 40 mg PO HS 11/06/21 11/08/21 History Budesonide-Formot 160-4.5 Mcg 2 puff INHALATION BID 11/06/21 11/08/21 History [Symbicort 160-4.5 Mcg Inhaler] Carvedilol [Coreg] 3.125 mg PO BID 11/06/21 11/08/21 History Isosorbide Mononitrate ER [Imdur] 30 mg PO DAILY 11/06/21 11/08/21 History Omeprazole [PriLOSEC] 20 mg PO DAILY PRN 11/06/21 11/08/21 History Primidone [Mysoline] 100 mg PO HS 11/06/21 11/08/21 History Allergies Allergy/AdvReac Type Severity Reaction Status Date / Time No Known Allergies Allergy Verified 11/08/21 07:21 Surgical - Exam Vital Signs Temp Pulse Resp BP Pulse Ox 97.4 F L 82 18 164/86 93 L 11/08/21 07:24 11/08/21 07:24 11/08/21 07:24 11/08/21 07:24 11/08/21 07:24
--- NOTE | 2021-11-08 08:05 | P.PCN ---
Date of Procedure: 11/08/21 Description of Procedure: PREOPERATIVE DIAGNOSIS: Personal history of colon polyps Colonoscopy screening POSTOPERATIVE DIAGNOSIS: Adenoma sigmoid colon Internal hemorrhoids, grade 2 OPERATION: Colonoscopy to the ileocecal valve and appendiceal orifice, cecum Colonoscopy with cold forceps biopsy SURGEON: Katrina Frias MD. ANESTHESIA: MAC. INDICATIONS: The patient is an 66-year-old male who presents personal history of colon polyps. Last colonoscopy 5 years. Benefits and risks were described and informed consent was obtained. DESCRIPTION OF PROCEDURE: The patient had undergone Sutab prep. The patient had been brought into the operating room and laid in the left lateral decubitus position. After adequate intravenous sedation, the rectum was examined with 2% lidocaine jelly. The prostate was unremarkable. No external hemorrhoids were encountered. The rectal tone was within normal limits. No lesions were palpated in the rectal vault. An Olympus colonoscope was advanced until the cecum, ileocecal valve and appendiceal orifice were clearly viewed. The prep was excellent. No sigmoid diverticulosis was encountered. Colonic polyps were found and removed. No evidence of focal colitis was found. Retroflexion of the scope demonstrated grade 2 internal hemorrhoids without active bleeding or inflammation. The colon was desufflated. The patient had tolerated the procedure well. Withdrawal time was over 6 minutes. FINDINGS: Aronchick preparation quality scale 1 (1-5) Internal hemorrhoids, grade 2 No external hemorrhoids, grade No arteriovenous malformations. No sigmoid diverticulosis Removal of 2 polyps: - Cold forceps biopsy at 35 cm from the anal verge, 3 to 4 mm polyp, sigmoid colon No focal colitis. RECOMMENDATIONS: Repeat colonoscopy in 3 years, 2024 Plan - Discharge Summary New Discharge Prescriptions: Continue Aspirin EC [Ecotrin Low Dose] 81 mg PO DAILY Cholecalciferol [Vitamin D3 (25 Mcg = 1000 Iu)] 1,000 unit PO DAILY Omeprazole [PriLOSEC] 20 mg PO DAILY PRN PRN Reason: Heartburn Isosorbide Mononitrate ER [Imdur] 30 mg PO DAILY Primidone [Mysoline] 100 mg PO HS Carvedilol [Coreg] 3.125 mg PO BID Atorvastatin [Lipitor] 40 mg PO HS Budesonide-Formot 160-4.5 Mcg [Symbicort 160-4.5 Mcg Inhaler] 2 puff INHALATION BID Albuterol Inhaler [Ventolin Hfa Inhaler] 1 puff INHALATION DIRECTED PRN PRN Reason: sob Discharge Medication List Aspirin EC [Ecotrin Low Dose] 81 mg PO DAILY 11/22/17 [History] Cholecalciferol [Vitamin D3 (25 Mcg = 1000 Iu)] 1,000 unit PO DAILY 11/22/17 [History] Albuterol Inhaler [Ventolin Hfa Inhaler] 1 puff INHALATION DIRECTED PRN 11/06/21 [History] Atorvastatin [Lipitor] 40 mg PO HS 11/06/21 [History] Budesonide-Formot 160-4.5 Mcg [Symbicort 160-4.5 Mcg Inhaler] 2 puff INHALATION BID 11/06/21 [History] Carvedilol [Coreg] 3.125 mg PO BID 11/06/21 [History] Isosorbide Mononitrate ER [Imdur] 30 mg PO DAILY 11/06/21 [History] Omeprazole [PriLOSEC] 20 mg PO DAILY PRN 11/06/21 [History] Primidone [Mysoline] 100 mg PO HS 11/06/21 [History] Follow up Appointment(s)/Referral(s): Katrina Frias MD [STAFF PHYSICIAN] - As Needed Patient Instructions/Handouts: Colorectal Polyps (GEN) Activity/Diet/Wound Care/Special Instructions: Colonoscopy in 3 years, 2024 Discharge Disposition: HOME SELF-CARE
[2021-11-08 08:19] VITALS: BP 148/84; PULSE 67; RESP 16
== END 2021-11-08 08:50 | disposition home or self-care (01) ==
LOC: ORWHC2ENDO 06:39
PROVIDERS: ATTEND Surgery Plastic and Reconstructive Surgery
DX: Z12.11 Encounter for screening for malignant neoplasm of colon (principal); K63.5 Polyp of colon; K64.1 Second degree hemorrhoids; Z86.010 Personal history of colon polyps; J45.909 Unspecified asthma, uncomplicated; K21.9 Gastro-esophageal reflux disease without esophagitis; E78.5 Hyperlipidemia, unspecified; I10 Essential (primary) hypertension; Z98.891 History of uterine scar from previous surgery; Z90.49 Acquired absence of other specified parts of digestive tract; Z95.5 Presence of coronary angioplasty implant and graft; Z98.51 Tubal ligation status; Z87.891 Personal history of nicotine dependence; Z86.69 Personal history of other diseases of the nervous system and sense organs
CPT/HCPCS: 88305; 45380; J2001; J2704

== ENCOUNTER 2021-11-12 10:44 | Emergency (ER) | payer MEDICARE, OTHER ==
[2021-11-12] MEDS ORDERED: KETOROLAC 15 MG/ML 1 ML VIAL IVP STA (11:03)
[2021-11-12] MEDS ORDERED: INSULIN ASPART (NovoLOG) 100 UNIT/ML VIAL SQ ONE (11:03)
[2021-11-12] MEDS ORDERED: SODIUM CHLORIDE 0.9% 1,000 ML IV ONE (11:03)
--- NOTE | 2021-11-12 11:15 | ED ---
General Adult HPI - General Chief complaint: Recheck/Abnormal Lab/Rx Stated complaint: High BS Time Seen by Provider: 11/12/21 10:55 Source: patient, RN notes reviewed, old records reviewed Mode of arrival: ambulatory Limitations: no limitations - History of Present Illness Initial comments: This is a 66-year-old female presents emergency department stating that on Saturday she was at her doctor's office and her blood sugar was 400 and today she took again it was still over 460 came in to see if we can get her blood pressure lowered so that she could follow-up in the morning with her primary medical care doctor. Patient states she does not want to stay in the hospital. Patient denies any symptoms. Patient states she's had no chest pain difficult breathing shortness of breath. Patient denies any fever chills or cough per patient denies any abdominal pain patient denies nausea vomiting diarrhea. Patient denies headache patient denies numbness weakness. Patient denies lightheadedness dizziness or near syncopal episode. Patient denies any swelling to the legs or calf tenderness. Patient denies any dysuria hematuria urinary frequency. Patient denies any signs of skin infections lesions or areas of erythema. - Related Data Home Medications Medication Instructions Recorded Confirmed Aspirin EC [Ecotrin Low Dose] 81 mg PO DAILY 11/22/17 11/08/21 Cholecalciferol [Vitamin D3 (25 1,000 unit PO DAILY 11/22/17 11/08/21 Mcg = 1000 Iu)] Albuterol Inhaler [Ventolin Hfa 1 puff INHALATION DIRECTED PRN 11/06/21 11/08/21 Inhaler] Atorvastatin [Lipitor] 40 mg PO HS 11/06/21 11/08/21 Budesonide-Formot 160-4.5 Mcg 2 puff INHALATION BID 11/06/21 11/08/21 [Symbicort 160-4.5 Mcg Inhaler] Carvedilol [Coreg] 3.125 mg PO BID 11/06/21 11/08/21 Isosorbide Mononitrate ER [Imdur] 30 mg PO DAILY 11/06/21 11/08/21 Omeprazole [PriLOSEC] 20 mg PO DAILY PRN 11/06/21 11/08/21 Primidone [Mysoline] 100 mg PO HS 11/06/21 11/08/21 Allergies Allergy/AdvReac Type Severity Reaction Status Date / Time No Known Allergies Allergy Verified 11/08/21 07:21 Review of Systems ROS Statement: Those systems with pertinent positive or pertinent negative responses have been documented in the HPI. ROS Other: All systems not noted in ROS Statement are negative. Past Medical History Past Medical History: Asthma, Chest Pain / Angina, GERD/Reflux, Hyperlipidemia, Hypertension Additional Past Medical History / Comment(s): hx migraines, History of Any Multi-Drug Resistant Organisms: None Reported Past Surgical History: Section, Cholecystectomy, Heart Catheterization With Stent, Tubal Ligation Additional Past Surgical History / Comment(s): COLONOSCOPY, one cardiac stent Past Anesthesia/Blood Transfusion Reactions: No Reported Reaction Date of Last Stent Placement:: 2018 Past Psychological History: No Psychological Hx Reported Smoking Status: Former smoker Past Alcohol Use History: None Reported Past Drug Use History: None Reported - Past Family History Mother Family Medical History: No Reported History General Exam - General Exam Comments Initial Comments: GENERAL: Patient is well-developed and well-nourished. Patient is nontoxic and well- hydrated and is in mild distress. ENT: Neck is soft and supple. No significant lymphadenopathy is noted. Oropharynx is clear. Moist mucous membranes. Neck has full range of motion without eliciting any pain. EYES: The sclera were anicteric and conjunctiva were pink and moist. Extraocular movements were intact and pupils were equal round and reactive to light. Eyelids were unremarkable. PULMONARY: Unlabored respirations. Good breath sounds bilaterally. No audible rales rhonchi or wheezing was noted. CARDIOVASCULAR: There is a regular rate and rhythm without any murmurs gallops or rubs. ABDOMEN: Soft and nontender with normal bowel sounds. SKIN: Skin is clear with no lesions or rashes and otherwise unremarkable. NEUROLOGIC: Patient is alert and oriented x3. Cranial nerves II through XII are grossly intact. Motor and sensory are also intact. Normal speech, volume and content. Symmetrical smile. MUSCULOSKELETAL: Normal extremities with adequate strength and full range of motion. No lower extremity swelling or edema. No calf tenderness. LYMPHATICS: No significant lymphadenopathy is noted PSYCHIATRIC: Normal psychiatric evaluation. Limitations: no limitations Course Vital Signs 11/12/21 10:53 Temperature 98.2 F Pulse Rate 77 Respiratory 18 Rate Blood Pressure 145/73 O2 Sat by Pulse 98 Oximetry Medical Decision Making - Medical Decision Making EKG shows sinus rhythm at 75 bpm NV interval 215 QRS is 86 QT interval 372 QTC is 400. Patient's EKG shows no ST segment elevation or depression. I spoke with Dr. Anthony Cruz stated she will call her prescription for metformin tonight and follow-up the patient tomorrow. Patient does not want to be admitted to the hospital. - Lab Data Result diagrams: 11/12/21 11:36 11/12/21 11:36 Lab Results 11/12/21 11/12/21 11/12/21 Range/Units 11:35 11:36 11:36 WBC 7.8 (3.8-10.6) k/uL RBC 5.30 (3.80-5.40) m/uL Hgb 15.8 (11.4-16.0) gm/dL Hct 48.0 H (34.0-46.0) % MCV 90.6 (80.0-100.0) fL MCH 29.8 (25.0-35.0) pg MCHC 32.9 (31.0-37.0) g/dL RDW 13.5 (11.5-15.5) % Plt Count 300 (150-450) k/uL MPV 6.7 Neutrophils % 65 % Lymphocytes % 24 % Monocytes % 6 % Eosinophils % 2 % Basophils % 1 % Neutrophils # 5.1 (1.3-7.7) k/uL Lymphocytes # 1.9 (1.0-4.8) k/uL Monocytes # 0.5 (0-1.0) k/uL Eosinophils # 0.2 (0-0.7) k/uL Basophils # 0.1 (0-0.2) k/uL Sodium (137-145) mmol/L Potassium (3.5-5.1) mmol/L Chloride (98-107) mmol/L Carbon Dioxide (22-30) mmol/L Anion Gap mmol/L BUN (7-17) mg/dL Creatinine (0.52-1.04) mg/dL Est GFR (CKD-EPI)AfAm (>60 ml/min/1.73 sqM) Est GFR (CKD-EPI)NonAf (>60 ml/min/1.73 sqM) Glucose (74-99) mg/dL POC Glucose (mg/dL) 323 H (75-99) mg/dL POC Glu Drupal Web Developer ID Roland Lyn Nicole Calcium (8.4-10.2) mg/dL Magnesium (1.6-2.3) mg/dL Total Bilirubin (0.2-1.3) mg/dL AST (14-36) U/L ALT (4-34) U/L Alkaline Phosphatase (38-126) U/L Total Protein (6.3-8.2) g/dL Albumin (3.5-5.0) g/dL Urine Color Light Yellow Urine Appearance Clear (Clear) Urine pH 5.5 (5.0-8.0) Ur Specific [place] 1.030 (1.001-1.035) Urine Protein Negative (Negative) Urine Glucose (UA) 4+ H (Negative) Urine Ketones 1+ H (Negative) Urine Blood Negative (Negative) Urine Nitrite Negative (Negative) Urine Bilirubin Negative (Negative) Urine Urobilinogen <2.0 (<2.0) mg/dL Ur Leukocyte Esterase Negative (Negative) Acetone, Qual (Negative) 11/12/21 11/12/21 11/12/21 Range/Units 11:36 12:24 14:11 WBC (3.8-10.6) k/uL RBC (3.80-5.40) m/uL Hgb (11.4-16.0) gm/dL Hct (34.0-46.0) % MCV (80.0-100.0) fL MCH (25.0-35.0) pg MCHC (31.0-37.0) g/dL RDW (11.5-15.5) % Plt Count (150-450) k/uL MPV Neutrophils % % Lymphocytes % % Monocytes % % Eosinophils % % Basophils % % Neutrophils # (1.3-7.7) k/uL Lymphocytes # (1.0-4.8) k/uL Monocytes # (0-1.0) k/uL Eosinophils # (0-0.7) k/uL Basophils # (0-0.2) k/uL Sodium 132 L (137-145) mmol/L Potassium 4.3 (3.5-5.1) mmol/L Chloride 99 (98-107) mmol/L Carbon Dioxide 24 (22-30) mmol/L Anion Gap 9 mmol/L BUN 9 (7-17) mg/dL Creatinine 0.42 L (0.52-1.04) mg/dL Est GFR (CKD-EPI)AfAm >90 (>60 ml/min/1.73 sqM) Est GFR (CKD-EPI)NonAf >90 (>60 ml/min/1.73 sqM) Glucose 355 H (74-99) mg/dL POC Glucose (mg/dL) 296 H 179 H (75-99) mg/dL POC Glu Drupal Web Developer ID Judie Crawley Ali Calcium 9.1 (8.4-10.2) mg/dL Magnesium 1.6 (1.6-2.3) mg/dL Total Bilirubin 0.9 (0.2-1.3) mg/dL AST 25 (14-36) U/L ALT 27 (4-34) U/L Alkaline Phosphatase 111 (38-126) U/L Total Protein 6.6 (6.3-8.2) g/dL Albumin 3.9 (3.5-5.0) g/dL Urine Color Urine Appearance (Clear) Urine pH (5.0-8.0) Ur Specific [place] (1.001-1.035) Urine Protein (Negative) Urine Glucose (UA) (Negative) Urine Ketones (Negative) Urine Blood (Negative) Urine Nitrite (Negative) Urine Bilirubin (Negative) Urine Urobilinogen (<2.0) mg/dL Ur Leukocyte Esterase (Negative) Acetone, Qual Positive (Negative) Disposition Clinical Impression: Diabetes mellitus, new onset Disposition: HOME SELF-CARE Instructions (If sedation given, give patient instructions): Type 2 Diabetes in Adults: New Diagnosis (DC) Is patient prescribed a controlled substance at d/c from ED?: No Referrals: Delbert Cruz DO [Primary Care Provider] - 1-2 days Time of Disposition: 14:17
[2021-11-12 11:36] LABS: Glucose,Whole Blood 323 mg/dL (75-99)
[2021-11-12 11:59] LABS: ALT 27 U/L (4-34); AST 25 U/L (14-36); African American GFR (CKD) >90 (>60 ml/min/1.73 sqM); Albumin 3.9 g/dL (3.5-5.0); Alkaline Phosphatase 111 U/L (38-126); Anion Gap 9 mmol/L; Blood Urea Nitrogen 9 mg/dL (7-17); Calcium 9.1 mg/dL (8.4-10.2); Carbon Dioxide 24 mmol/L (22-30); Chloride 99 mmol/L (98-107); Glucose 355 mg/dL (74-99); Magnesium 1.6 mg/dL (1.6-2.3); Non-African American GFR(CKD) >90 (>60 ml/min/1.73 sqM); Potassium 4.3 mmol/L (3.5-5.1); Sodium 132 mmol/L (137-145); Total Bilirubin 0.9 mg/dL (0.2-1.3); Total Protein 6.6 g/dL (6.3-8.2)
[2021-11-12 12:06] LABS: Basophils # (A) 0.1 k/uL (0-0.2); Basophils % (A) 1 %; Eosinophils # (A) 0.2 k/uL (0-0.7); Eosinophils % (A) 2 %; HGB 15.8 gm/dL (11.4-16.0); Lymphocytes # (A) 1.9 k/uL (1.0-4.8); Lymphocytes % (A) 24 %; MCH 29.8 pg (25.0-35.0); MCHC 32.9 g/dL (31.0-37.0); MCV 90.6 fL (80.0-100.0); Mean Platelet Volume 6.7; Monocytes # (A) 0.5 k/uL (0-1.0); Monocytes % (A) 6 %; Neutrophils # (A) 5.1 k/uL (1.3-7.7); Neutrophils % (A) 65 %; Platelet Count 300 k/uL (150-450); RDW 13.5 % (11.5-15.5); WBC 7.8 k/uL (3.8-10.6)
[2021-11-12 12:26] LABS: Glucose,Whole Blood 296 mg/dL (75-99)
[2021-11-12] MEDS ORDERED: predniSONE 50 MG TAB PO STA (13:43)
[2021-11-12 14:02] LABS: Appearance,Urine Clear (Clear); Bilirubin,Urine Negative (Negative); Blood,Urine Negative (Negative); Color,Urine Light Yellow; Glucose,Urine (UA) 4+ (Negative); Ketones,Urine 1+ (Negative); Leukocyte Esterase,Urine Negative (Negative); Nitrite,Urine Negative (Negative); PH, Urine 5.5 (5.0-8.0); Protein,Urine Negative (Negative); Urobilinogen,Urine <2.0 mg/dL (<2.0)
[2021-11-12 14:13] LABS: Glucose,Whole Blood 179 mg/dL (75-99)
[2021-11-12 14:17] VITALS: BP 138/87; PULSE 71; RESP 16; TEMP 98.1
== END 2021-11-12 14:16 | disposition home or self-care (01) ==
LOC: EC 10:44
DX: E11.65 Type 2 diabetes mellitus with hyperglycemia (principal); K21.9 Gastro-esophageal reflux disease without esophagitis; E78.5 Hyperlipidemia, unspecified; I10 Essential (primary) hypertension; J45.909 Unspecified asthma, uncomplicated; Z79.82 Long term (current) use of aspirin; Z90.49 Acquired absence of other specified parts of digestive tract; Z98.51 Tubal ligation status; Z87.891 Personal history of nicotine dependence; Z79.899 Other long term (current) drug therapy
CPT/HCPCS: 36415; 80053; 81003; 82009; 83036; 83735; 85025; 93005; 96360; 99285

== ENCOUNTER → 2022-01-11 | Outpatient (CLI) | payer MEDICARE ==
--- NOTE | 2022-01-12 14:41 | MM ---
Reason for exam: screening (asymptomatic). Last mammogram was performed 1 year and 11 months ago. History: Patient is postmenopausal. Physical Findings: A clinical breast exam by your physician is recommended on an annual basis and results should be correlated with mammographic findings. MG 3D Screening Mammo W/Cad Bilateral CC and MLO view(s) were taken. Prior study comparison: February 18, 2020, bilateral MG screening mammo w CAD. October 24, 2018, bilateral MG screening mammo w CAD. There are scattered fibroglandular densities. Benign appearing calcifications in the left breast. No significant changes when compared with prior studies. ASSESSMENT: Benign, BI-RAD 2 RECOMMENDATION: Routine screening mammogram of both breasts in 1 year.
== END | disposition home or self-care (01) ==
LOC: RADMAMWWP 10:08
PROVIDERS: ATTEND Family Medicine
DX: Z12.31 Encounter for screening mammogram for malignant neoplasm of breast (principal); Z78.0 Asymptomatic menopausal state
CPT/HCPCS: 77063; 77067

== ENCOUNTER → 2023-01-18 | Outpatient (CLI) | payer MEDICARE ==
--- NOTE | 2023-01-18 09:07 | CTL ---
EXAMINATION TYPE: CT Low Dose Lung DATE OF EXAM ORDERED: 01/18/2023 HISTORY: 68-year-old female Z12.2, personal history of tobacco use, former smoker with 35 pack-year h istory. Lung cancer screening CT DLP: [address] CTDI: 2.56 mGy Automated exposure control for dose reduction was used. SCREENING VISIT: Baseline COMPARISON: None TECHNIQUE: Low dose computed tomography scan was performed through the chest with coronal and sagitta l reconstructions. CT DIAGNOSTIC QUALITY: Satisfactory FINDINGS: Heart normal size without pericardial effusion. LAD coronary artery calcifications are present. Aorta normal caliber with mild atherosclerotic arch calcifications and convention arch vessel branchi ng anatomy. A few scattered nonenlarged mediastinal lymph nodes. No thoracic lymph adenopathy by CT size criteria . Possible underlying 1.5 cm left thyroid lobe nodule which can be further evaluated with dedicated thy roid ultrasound. Mild biapical pleural-parenchymal scarring. * 4 mm subpleural pulmonary nodule lateral right upper lobe, axial image 38. * 4 mm pulmonary nodule lateral right upper lobe on axial image 48. * Irregular subpleural nodularity posterior right upper lobe measuring 1.1 cm and 0.9 cm, axial imag e 54 and 61. * 3 mm lateral left basilar pulmonary nodule, axial image 212. * Clustered nodularity posterolateral left lower lobe, axial images 150 through 156 with individual nodules measuring up to 6 mm. * 4 mm lateral left midlung pulmonary nodule, axial image 133. Some subtle interstitial groundglass change centrally in the right upper lobe. Mild to moderate diff use bronchial wall thickening. No consolidation or pleural effusion. Visualized upper abdomen shows cholecystectomy clips. Bones: Anterior endplate spondylosis mid to lower thoracic spine. IMPRESSION: 1. LungRADS Category 4A (suspicious, 5-15% chance of malignancy); scattered bilateral pulmonary nodul es, largest measuring up to 1.1 cm. The larger areas may reflect pleural parenchymal scarring. 2. Bronchial wall thickening suggesting bronchitis or chronic asthma. Some subtle underlying intersti tial scarring is also suggested. 3. LAD coronary artery calcifications. 4. Possible 1.5 cm left thyroid lobe nodule. CT LUNG RAD AND CT CHEST RECOMMENDATION: Lung-Rad 4A Suspicious: Follow-up 3 month LDCT or PET/CT may be used when there is a > 8 mm solid component. S Modifier (other clinically significant findings): S, thyroid ultrasound to assess for potential und erlying 1.5 cm nodule.
--- NOTE | 2023-01-21 08:00 | MM ---
Reason for Exam: Screening (asymptomatic). Last screening mammogram was performed 12 month(s) ago. Patient History: Menarche at age 14. First Full-Term at age 26. Postmenopausal. Risk Values: Michelle 5 year model risk: 1.7%. NCI Lifetime model risk: 5.6%. Prior Study Comparison: 10/24/2018 Bilateral Screening Mammogram, [facility]. 02/18/2020 Bilateral Screening Mammogram, [facility]. 01/11/2022 Bilateral Screening Mammogram, [facility]. Tissue Density: There are scattered fibroglandular densities. Findings: Analyzed By CAD. There is no suspicious group of microcalcifications or new suspicious mass in either breast. Overall Assessment: Negative, BI-RAD 1 Management: Screening Mammogram of both breasts in 1 year. . Patient should continue monthly self-breast exams. A clinical breast exam by your physician is recommended on an annual basis. This exam should not preclude additional follow-up of suspicious palpable abnormalities. Note on Michelle scores and lifetime risk: 1. A Michelle score greater than 3% is considered moderate risk. If this is the case, consider specialist referral to assess eligibility for a risk reducing agent. 2. If overall lifetime risk for the development of breast cancer is 20% or higher, the patient may qualify for future screening with alternating mammogram and breast MRI. Electronically signed and approved by: Sumit Manning M.D. Radiologis
== END | disposition home or self-care (01) ==
LOC: RADMAMWWP 07:53
PROVIDERS: ATTEND Family Medicine
DX: Z12.31 Encounter for screening mammogram for malignant neoplasm of breast (principal); Z12.2 Encounter for screening for malignant neoplasm of respiratory organs; I25.10 Atherosclerotic heart disease of native coronary artery without angina pectoris; J98.09 Other diseases of bronchus, not elsewhere classified; R91.8 Other nonspecific abnormal finding of lung field; Z78.0 Asymptomatic menopausal state; Z87.891 Personal history of nicotine dependence
CPT/HCPCS: 71271; 77063; 77067

== ENCOUNTER → 2023-02-22 | Outpatient (CLI) | payer MEDICARE ==
--- NOTE | 2023-02-24 09:50 | PE ---
EXAMINATION TYPE: PET CT fusion skull to thigh DATE OF EXAM: 02/22/2023 CLINICAL INDICATION:Female, 68 years old with history of R91.8; TECHNIQUE: Following the intravenous administration of 10.75 mCi of F-18 FDG, whole body images are performed from the skull base to the midthigh. Images are reviewed on the computer in the coronal, axial, and sagittal planes. Reconstructed rotating images are created on independent workstation and reviewed on the computer. A non-contrast CT is performed in conjunction with the PET scan. Glucose level 107 mg/dL COMPARISON: CT 01/18/2023, PET/CT None, FINDINGS: Mediastinal SUV mean is 1.6. Hepatic parenchyma SUV mean is 2.4. SKULL BASE AND NECK: No suspicious radiotracer activity. CHEST, MEDIASTINUM, AND HILAR REGION: No suspicious radiotracer activity. Areas seen on prior within the posterior aspect of the right upper lung are less well appreciated and likely represent atelectasis/scarring on prior. Additional sub-5 mm pulmonary nodules are visualized and are too small to characterize for PET/CT. ABDOMEN AND PELVIS: No suspicious radiotracer activity. Physiologic uptake in the bowel. MUSCULOSKELETAL STRUCTURES: No suspicious radiotracer activity. OTHER CT: Atherosclerosis of the arterial vasculature including the coronary arteries. Heart is mildl y enlarged for size. The gallbladder appears surgically absent. Fat-containing umbilical hernia. Tuba l ligation clips are present. Epicardial fat lymph node anteriorly measuring 6 mm. IMPRESSION: No suspicious radiotracer activity. The findings within the posterior right lung are most compatible with scarring/atelectasis. Additional pulmonary nodules are below threshold for PET/CT. Continued jean pierre veillance with CT imaging recommended.
== END | disposition home or self-care (01) ==
LOC: RADPETMAIN 07:58
PROVIDERS: ATTEND Family Medicine
DX: R91.8 Other nonspecific abnormal finding of lung field (principal)
CPT/HCPCS: 78815; A9552

== ENCOUNTER 2023-12-11 07:21 | Day surgery (SDC) | payer MEDICARE ==
--- NOTE | 2023-12-11 07:54 | P.GSHP ---
History of Present Illness H&P Date: 12/11/23 CHIEF COMPLAINT: Colon screen HISTORY OF PRESENT ILLNESS: The patient is a 68-year-old female who presents for colon screen. Lower endoscopy was offered for further evaluation and management. PAST MEDICAL HISTORY: Please see list. PAST SURGICAL HISTORY: Please see list. MEDICATIONS: Please see list. ALLERGIES: Please see list. SOCIAL HISTORY: No illicit drug use FAMILY HISTORY: No reports of Crohn disease or ulcerative colitis. REVIEW OF ORGAN SYSTEMS: CONSTITUTIONAL: No reports of fevers or chills. PHYSICAL EXAM: VITAL SIGNS: Stable GENERAL: Well-developed pleasant in no acute distress. HEENT: No scleral icterus. Extraocular movements grossly intact. Moist buccal mucosa. NECK: Supple without lymphadenopathy. CHEST: Unlabored respirations. Equal bilateral excursions. CARDIOVASCULAR: Regular rate and rhythm. Distal 2+ pulses. ABDOMEN: Soft, nontender, nondistended. MUSCULOSKELETAL: No clubbing, cyanosis, or edema. ASSESSMENT: 1. Colon screen. PLAN: 1. Recommend proceeding with a lower endoscopy Past Medical History Past Medical History: Asthma, Chest Pain / Angina, Diabetes Mellitus, GERD/Reflux, Hyperlipidemia, Hypertension Additional Past Medical History / Comment(s): hx migraines, History of Any Multi-Drug Resistant Organisms: None Reported Past Surgical History: Section, Cholecystectomy, Heart Catheterization With Stent, Tubal Ligation Additional Past Surgical History / Comment(s): COLONOSCOPY, one cardiac stent Past Anesthesia/Blood Transfusion Reactions: No Reported Reaction Date of Last Stent Placement:: 2018 Smoking Status: Former smoker - Past Family History Mother Family Medical History: No Reported History Medications and Allergies Home Medications Medication Instructions Recorded Confirmed Type Aspirin EC [Ecotrin Low Dose] 81 mg PO DAILY 11/22/17 12/09/23 History Albuterol Inhaler [Ventolin Hfa 1 puff INHALATION DIRECTED PRN 11/06/21 12/09/23 History Inhaler] Atorvastatin [Lipitor] 40 mg PO HS 11/06/21 12/09/23 History Budesonide-Formot 160-4.5 Mcg 2 puff INHALATION BID 11/06/21 12/09/23 History [Symbicort 160-4.5 Mcg Inhaler] Isosorbide Mononitrate ER [Imdur] 30 mg PO DAILY 11/06/21 12/09/23 History Primidone [Mysoline] 100 mg PO HS 11/06/21 12/09/23 History carvediloL [Coreg] 3.125 mg PO BID 11/06/21 12/09/23 History Calcium 26/Vit D3/Magnesium 15 1 each PO DAILY 12/09/23 12/09/23 History [Eojucib-Slc-E8 Complx 167Mg Cp] Semaglutide [Ozempic] 0.5 mg SQ TH 12/09/23 12/09/23 History metFORMIN HCL ER [Glucophage XR] 1,000 mg PO 1700 12/09/23 12/09/23 History Allergies Allergy/AdvReac Type Severity Reaction Status Date / Time No Known Allergies Allergy Verified 12/09/23 09:22
[2023-12-11] MEDS: LACTATED RINGERS 1,000 ML IV SCH (08:04)
[2023-12-11 08:17] LABS: Glucose,Whole Blood 105 mg/dL (70-110)
[2023-12-11 08:44] VITALS: RESP 16; TEMP 97.3
[2023-12-11] MEDS ORDERED: PROPOFOL 10 MG/ML 20 ML VIAL IV ONE (09:10)
[2023-12-11] MEDS ORDERED: LIDOCAINE 1% INJ 10MG/ML (20 ML MDV) ONE (09:10)
--- NOTE | 2023-12-11 09:34 | P.PCN ---
Date of Procedure: 12/11/23 Description of Procedure: PREOPERATIVE DIAGNOSIS: Personal history of colon polyps Colonoscopy screening. POSTOPERATIVE DIAGNOSIS: Personal history of colon polyps Colonoscopy screening. OPERATION: Colonoscopy to the cecum, ileocecal valve and appendiceal orifice. SURGEON: Katrina Frias MD. ANESTHESIA: MAC. INDICATIONS: The patient is a 68-year-old female who presents for colonoscopy screening. Last colonoscopy 5 years ago. Benefits and risks were described and informed consent was obtained. DESCRIPTION OF PROCEDURE: The patient had undergone Sutab prep. The patient had been brought into the operating room and laid in the left lateral decubitus position. After adequate intravenous sedation, the rectum was examined with 2% lidocaine jelly. No external hemorrhoids were encountered. The rectal tone was within normal limits. No lesions were palpated in the rectal vault. An Olympus colonoscope was advanced until the cecum, ileocecal valve and appendiceal orifice were clearly viewed. The prep was good. No large scattered diverticulosis was encountered. No colonic polyps were found. No evidence of focal colitis was found. Retroflexion of the scope demonstrated grade 1 internal hemorrhoids without active bleeding or inflammation. The colon was desufflated. The patient had tolerated the procedure well. Withdrawal time was over 6 minutes. FINDINGS: Aronchick preparation quality scale 2 (1-5) Internal hemorrhoids, grade 1 No external prolapsed hemorrhoids. No arteriovenous malformations. No adenomatous polyps. No focal colitis. RECOMMENDATIONS: Lower endoscopy 5 years, 2028 Plan - Discharge Summary Discharge Rx Participant: No New Discharge Prescriptions: Continue Aspirin EC [Ecotrin Low Dose] 81 mg PO DAILY Isosorbide Mononitrate ER [Imdur] 30 mg PO DAILY Primidone [Mysoline] 100 mg PO HS carvediloL [Coreg] 3.125 mg PO BID Atorvastatin [Lipitor] 40 mg PO HS Budesonide-Formot 160-4.5 Mcg [Symbicort 160-4.5 Mcg Inhaler] 2 puff INHALATION BID Albuterol Inhaler [Ventolin Hfa Inhaler] 1 puff INHALATION DIRECTED PRN PRN Reason: sob metFORMIN HCL ER [Glucophage XR] 1,000 mg PO 1700 Calcium 26/Vit D3/Magnesium 15 [[id number] Complx 167Mg Cp] 1 each PO DAILY Semaglutide [Ozempic] 0.5 mg SQ TH Discharge Medication List Aspirin EC [Ecotrin Low Dose] 81 mg PO DAILY 11/22/17 [History] Albuterol Inhaler [Ventolin Hfa Inhaler] 1 puff INHALATION DIRECTED PRN 11/06/21 [History] Atorvastatin [Lipitor] 40 mg PO HS 11/06/21 [History] Budesonide-Formot 160-4.5 Mcg [Symbicort 160-4.5 Mcg Inhaler] 2 puff INHALATION BID 11/06/21 [History] Isosorbide Mononitrate ER [Imdur] 30 mg PO DAILY 11/06/21 [History] Primidone [Mysoline] 100 mg PO HS 11/06/21 [History] carvediloL [Coreg] 3.125 mg PO BID 11/06/21 [History] Calcium 26/Vit D3/Magnesium 15 [Pdqugld-Cnu-T4 Complx 167Mg Cp] 1 each PO DAILY 12/09/23 [History] Semaglutide [Ozempic] 0.5 mg SQ TH 12/09/23 [History] metFORMIN HCL ER [Glucophage XR] 1,000 mg PO 1700 12/09/23 [History] Follow up Appointment(s)/Referral(s): Katrina Frias MD [STAFF PHYSICIAN] - As Needed Patient Instructions/Handouts: Moderate Sedation (DC) Activity/Diet/Wound Care/Special Instructions: Repeat colonoscopy 5 years, 2028 Discharge Disposition: HOME SELF-CARE
[2023-12-11 10:12] VITALS: BP 115/72; PULSE 74
== END 2023-12-11 10:05 | disposition home or self-care (01) ==
LOC: ORWHC2ENDO 07:21
PROVIDERS: ATTEND Surgery Plastic and Reconstructive Surgery
DX: Z12.11 Encounter for screening for malignant neoplasm of colon (principal); E11.9 Type 2 diabetes mellitus without complications; E78.5 Hyperlipidemia, unspecified; I10 Essential (primary) hypertension; J45.909 Unspecified asthma, uncomplicated; K21.9 Gastro-esophageal reflux disease without esophagitis; G43.909 Migraine, unspecified, not intractable, without status migrainosus; Z79.51 Long term (current) use of inhaled steroids; Z79.82 Long term (current) use of aspirin; Z79.84 Long term (current) use of oral hypoglycemic drugs; Z87.891 Personal history of nicotine dependence; Z90.49 Acquired absence of other specified parts of digestive tract; Z95.5 Presence of coronary angioplasty implant and graft; Z98.51 Tubal ligation status; Z86.010 Personal history of colon polyps
CPT/HCPCS: J2001; J2704; G0105

== ENCOUNTER → 2024-02-18 | Outpatient (CLI) | payer MEDICARE ==
--- NOTE | 2024-02-18 13:35 | CTL ---
EXAMINATION TYPE: CT Low Dose Lung DATE OF EXAM ORDERED: 02/18/2024 HISTORY: . Low Dose CT Lung Screening CT DLP: 104.[address] CTDI: 2.9 mGy IV CONTRAST USED: None. SCREENING VISIT: First visit COMPARISON: 01/18/2023, PET/CT 02/22/2023 TECHNIQUE: Low dose computed tomography scan was performed through the chest at 1 millimeter thick se ctions and reconstructed images in the coronal plane at [address] DIAGNOSTIC QUALITY: Satisfactory FINDINGS: LUNG NODULES: Again noted are scattered subpleural nodules right upper lobe measuring 7.6 mm, 5.3 mm and 6.6 mm. Additional sub-5 mm pulmonary nodule seen. No new nodules evident. No progressive nodules seen. LUNGS: COPD: Severity: Mild Fibrosis: Severity:None Lymph nodes: None Other findings: None RIGHT PLEURAL SPACE: Effusion: None Calcification: None Thickening: None Pneumothorax: None LEFT PLEURAL SPACE: Effusion: None Calcification: None Thickening: None Pneumothorax: None HEART: Heart Size: Mildly enlarged Coronary calcification: Mild Pericardial effusion: None OTHER FINDINGS: Upper abdomen: No significant abnormality Bony thorax: Degenerative changes Supraclavicular region: No significant abnormalityOther: No significant abnormalityI IMPRESSION: Stable scattered benign appearing nodularity. No new nodules identified. FOLLOW UP CT CHEST RECOMMENDATION: Follow-up screening in one year CT LUNG RAD: LUNG RAD CATEGORY 2 benign appearance and behavior
--- NOTE | 2024-02-21 11:40 | MM ---
Reason for Exam: Screening (asymptomatic). Last mammogram was performed 1 year(s) and 1 month(s) ago. Patient History: Menarche at age 14. First Full-Term at age 26. Postmenopausal. Risk Values: Michelle 5 year model risk: 1.7%. NCI Lifetime model risk: 5.4%. Prior Study Comparison: 02/18/2020 Bilateral Screening Mammogram, [facility]. 01/11/2022 Bilateral Screening Mammogram, [facility]. 01/18/2023 Bilateral MG 3D screening mammo w/cad, [facility]. Tissue Density: There are scattered areas of fibroglandular density. Findings: Analyzed By CAD. Right breast: There is no suspicious group of microcalcifications or new suspicious mass. Left breast: There is no suspicious group of microcalcifications or new suspicious mass. Benign-appearing calcifications left breast. Overall Assessment: Benign, BI-RAD 2 Management: Screening Mammogram of both breasts in [address] [facility] will attempt to contact patient to return for supplemental views and ultrasound if indicated. Patient should continue monthly self-breast exams. A clinical breast exam by your physician is recommended on an annual basis. This exam should not preclude additional follow-up of suspicious palpable abnormalities. Note on Michelle scores and lifetime risk: 1. A Michelle score greater than 3% is considered moderate risk. If this is the case, consider specialist referral to assess eligibility for a risk reducing agent. 2. If overall lifetime risk for the development of breast cancer is 20% or higher, the patient may qualify for future screening with alternating mammogram and breast MRI. Electronically signed and approved by: Benny Park DO
== END | disposition home or self-care (01) ==
LOC: RADMAMWWP 12:49
PROVIDERS: ATTEND Family Medicine
DX: Z12.31 Encounter for screening mammogram for malignant neoplasm of breast (principal); Z12.2 Encounter for screening for malignant neoplasm of respiratory organs; R91.8 Other nonspecific abnormal finding of lung field; Z87.891 Personal history of nicotine dependence; Z78.0 Asymptomatic menopausal state
CPT/HCPCS: 71271; 77063; 77067

== ENCOUNTER → 2025-02-18 | Outpatient (CLI) | payer MEDICARE ==
--- NOTE | 2025-02-18 12:21 | CTL ---
EXAMINATION TYPE: CT Low Dose Lung DATE OF EXAM: 02/18/2025 12:08 PM COMPARISON: 02/18/2024, 02/22/2023. CLINICAL INDICATION: Female, 70 years old with history of Z12.2 LUNG CA SCR Z87.891 FORMER SMOKER; Lili ng screening., history of tobacco use. TECHNIQUE: Multiple axial non-contrast scans were obtained from approximately the lung apices through the upper abdomen. Coronal and sagittal reformatted images were obtained. Low dose technique was uti lized. MIP were created on a separate workstation and submitted for review. CT DLP: 80.9 mGycm, Automated exposure control for dose reduction was used. CT Contrast: Contrast used: None Oral contrast used: None FINDINGS: Lack of intravenous contrast and low dose technique limits the evaluation of the vascular and soft ti ssue structures. LUNGS: No evidence of pulmonary fibrosis. No evidence of focal consolidation, pneumothorax or pleural effusion. Centrilobular emphysema changes. Nodules: Scattered pulmonary nodules measuring less than 6 mm examples below. RUL: * 2 mm series 3 image 47. Stable * atelectasis/scarring series 6 image 46. * 3 mm image 58.Stable RML: None. RLL: None. ARIANA: * 4 mm series 3 image 120 stable LLL: * 5 mm series 2 image 23 stable. * 3 mm series 3 image 196. Stable AIRWAY: Patent and unremarkable. HEART: Size within normal limits. No significant coronary artery calcifications. MEDIASTINUM: No gross evidence of adenopathy. VASCULATURE: No aortic aneurysm. MUSCULOSKELETAL: No acute osseous abnormalities SOFT TISSUES/LYMPH NODES: Unremarkable. LOWER NECK: No significant findings. UPPER ABDOMEN: No significant findings. IMPRESSION: 1. No clinically significant pulmonary nodules. 2. Mild emphysema. CT LUNG RAD AND CT CHEST RECOMMENDATION: Lung-Rad 2 Benign Appearance or Behavior: Continue annual sc reening with LDCT in 12 months. S Modifier (other clinically significant findings): None Recommend smoking cessation (if current smoker), or continuation of smoking cessation (if prior smoke r). Annual screening for lung cancer with low-dose computed tomography is recommended in adults ages 55 to 77 years who have a 30 pack-year smoking history and currently smoke or have quit within the pa st 15 years. Screening should be discontinued once a person has not smoked for 15 years or develops a health problem that substantially limits life expectancy or the ability or willingness to have curat akosua lung surgery. Lung rads 2021 [email or web address] [email or web address], , 02/18/2025 12:18 PM
== END | disposition home or self-care (01) ==
LOC: RADCTMAIN 11:39
PROVIDERS: ATTEND Family Medicine
DX: Z12.2 Encounter for screening for malignant neoplasm of respiratory organs (principal); Z87.891 Personal history of nicotine dependence; J43.2 Centrilobular emphysema
CPT/HCPCS: 71271